=== PATIENT | female | born 1970 | race Caucasian/White ===

== ENCOUNTER → 2022-10-09 | Outpatient (CLI) | payer OTHER, SELFPAY ==
--- NOTE | 2022-10-09 07:29 | CT_ITS ---
CT RIGHT LOWER EXTREMITY WITH 3-D IMAGING CLINICAL INDICATION: POST TRAUMATIC OSTEOARTHRITIS TECHNIQUE: Axial CT images of the RIGHT lower extremity was performed without IV contrast material. Coronal and sagittal reformats were provided. RADIATION DOSAGE (If Supplied By Facility): CTDIvol = ( 18.94 ) mGy, DLP = ( 1189.09 ) mGycm COMPARISON: No relevant priors available FINDINGS: Bones: Imaging of the right hip joint was obtained. Mild degree of joint space narrowing. Minimal spurring is seen along the inferior medial aspect of the right femoral head as well as the superior lateral aspect of the right femoral head. Imaging of the right knee joint was obtained. There is a moderate degree of the joint space narrowing involving the lateral compartment of the knee joint with a degenerative spur formation at the medial and lateral femoral condyles as well as the lateral tibial plateau. There is a marked degree of joint space narrowing of the patellofemoral joint with spur formation. Posterior spur is also seen in the distal femur. There is also evidence of a 2.2 cm x 0.7 cm well-corticated bony fragment in the posterior joint space. Imaging of the ankle joint was obtained. No significant abnormality is seen. Soft Tissues: The deep soft tissue structures are unremarkable. The superficial soft tissues are unremarkable without evidence of edema, hematoma, or foreign body. CT/Extremity Lower without Contra IMPRESSION: Moderate degree of joint space narrowing involving the lateral compartment of the knee joint as well as the patellofemoral joint with degenerative spur formation. 2.2 cm x 0.7 cm well-corticated bony fragment in the posterior joint space. Electronically Signed: Omar Ramirez MD at 13:42 EDT ,
== END | disposition home or self-care (01) ==
PROVIDERS: PCP Family Medicine; Referring Provider Student in an Organized Health Care Education/Training Program; Visit Provider Student in an Organized Health Care Education/Training Program
DX: M17.31 Unilateral post-traumatic osteoarthritis, right knee (principal); M25.561 Pain in right knee
CPT/HCPCS: 73700

== ENCOUNTER 2022-10-30 05:26 | Day surgery (SDC) | payer OTHER, SELFPAY ==
--- NOTE | 2022-10-09 07:25 | EKG12_ITS ---
Test Reason : PRE OP Blood Pressure : / mmHG Vent. Rate : 076 BPM Atrial Rate : 076 BPM P-R Int : 176 ms QRS Dur : 092 ms QT Int : 396 ms P-R-T Axes : 029 017 040 degrees QTc Int : 445 ms Normal sinus rhythm Normal ECG Confirmed by FRANNY CANCINO, LOVE ([id number]), movie editor RENU RYDER ([id number]) on 10/10/2022 8:15:50 AM Referred By: Ar Neff Confirmed By:LOVE BLANTON MD
[2022-10-09 08:14] LABS: Absolute Lymphocyte Count 3.43 X10^3/uL (0.83-4.51); Absolute Neutrophil Count 4.1 X10^3/uL (2.0-7.7); Basophil# 0.07 X10^3/uL; Basophil% 0.8 % (0-1); Eosinophil# 0.27 X10^3/uL; Hematocrit 42.8 % (37-47); Hemoglobin 14.3 g/dL (12.0-15.0); Lymphocyte # 3.43 X10^3/ul (0.83-4.51); Lymphocyte % 38.3 % (19-41); Mean Corp Hgb Conc 33.4 g/dL (32-36); Mean Corpuscular Hgb 28.5 pg (27.0-32.0); Mean Corpuscular Volume 85.4 fL (81-99); Mean Platelet Vol. 9.6 fl (6.2-12.0); Monocyte# 1.03 X10^3/uL; Monocyte% 11.5 % (0-10); NRBC Flagged by Analyzer 0 % (0-5); Neutrophil # 4.11 X10^3/uL (2.7-7.7); Platelet Count 323 K/mm3 (150-450); RBC Distribution Width CV 12.4 % (11.6-14.6); RBC Distribution Width SD 37.9 fl (35.1-43.9); Red Blood Count 5.01 M/mm3 (4.2-5.4)
[2022-10-09 08:32] LABS: Anion Gap 5 (5-15); BUN 15 mg/dL (7-18); BUN/Creat Ratio 17.4 RATIO (10-20); Calcium,Total 9.1 mg/dL (8.5-10.1); Chloride 103 mmol/L (98-107); Creatinine, Serum 0.86 mg/dL (0.55-1.02); EST Glomerular Filtration Rate 74 mL/min (>60); Est Glom Filt Rate - Afr Amer 89 mL/min (>60); Glucose 97 mg/dL (74-106); Potassium 3.3 mmol/L (3.5-5.1); Sodium Level 137 mmol/L (136-145)
[2022-10-09 08:53] LABS: Magnesium 1.8 mg/dL (1.6-2.6)
--- NOTE | 2022-10-29 | KNEE_PTH ---
PATIENT: NIMA BILLS LOC: [facility] [place] U#:[id number] AGE/SX: 52/F ROOM: RE10/30/[address]: Dr. Ar Neff DO : 1970 BED: DIS: 10/30/2022 SPEC #: [id number] RECD: 10/30/22 12:03 STATUS: ARNULFO RODGER #: [id number] GINNY: 10/29/22 00:[address]: Ar Neff DEPT: SURGICAL PATHOLOGY RECD BY: Dany Andrade ENTERED: 10/30/22 12:03 SP TYPE: TOTAL KNEE OTHR DR: Dr. Aryan Norman MD Tissues: Knee, NOS Procedures: Decalcification bone/plaque Surgery Specimen Level IV HEADER OPERATION: ERAS, total knee replacement robotic arm assist PRE-OP DIAGNOSIS: Grade IV posttraumatic osteoarthritis TISSUE SUBMITTED: Right knee bone and tissue MICROSCOPIC DIAGNOSIS Bone and tissue of right knee, total knee resection: Severe degenerative joint disease. AM:eleuterio 11/03/2022 MICROSCOPIC DESCRIPTION Slides are reviewed. GROSS DESCRIPTION Received is one container designated bone and soft tissue right knee. The specimen consists of multiple fragments of mcintyre-yellow bone measuring in aggregate 11.0 x 10.0 x 3.0 cm. Also in the specimen container is a piece of cartilaginous tissue measuring 6.0 x 2.0 x 1.0 cm. A number of bony fragments contain articular surfaces consistent with tibial plateau and femoral condyle and displaying prominent osteophyte formation, eburnation and bone erosion. Assistant Branch Operations Manager sections are submitted in two cassettes as follows: 1 - soft tissue, 2 - bone after decalcification. / SJ:eleuterio 10/30/2022 TC:5 [facility]: [id number], [id number]
[2022-10-30] VITALS (11 sets, daily range): BP systolic 97–132; BP diastolic 58–93; PULSE 60–85; RESP 16–18; TEMP 36.1–36.8; O2SAT 95–100; BMI 38.8
[2022-10-30] MEDS: Magnesium 2 GM for ERAS IV (06:30)
[2022-10-30] MEDS: Lactated Ringers 1,000 ML 999 ML IV ×2 (06:30→10:37)
[2022-10-30] MEDS: Acetaminophen 500 MG Tablet 1000 MG PO (06:31)
[2022-10-30] MEDS: Gabapentin 600 MG Tablet PO (06:31)
[2022-10-30] MEDS: Celecoxib 200 MG Capsule 400 MG PO (06:31)
[2022-10-30 06:40] LABS: Bedside Glucose 83 mg/dL (74-106)
[2022-10-30] MEDS: dexAMETHasone 10 MG/ML Vial IV (07:50)
[2022-10-30] MEDS: TXA 1000mg in NS100 100ml (IVPB at Incision) 660 MG IV (07:50)
[2022-10-30] MEDS: JPS (Morphine 10mg/ml) OPERA.SITE (09:00)
[2022-10-30] MEDS: TXA 1000mg in NS100 100ml (IVPB at Closure) 660 MG IV (09:35)
--- NOTE | 2022-10-30 10:59 | DCINST_ITS ---
Discharge Instructions Follow Up Care Test Results: Test results from this visit will be discussed in further detail at your follow- up appointment, if applicable. Discharge Plan Admission Primary Reason for Your Visit: Right total knee replacement Attending Provider: Ar Neff Primary Care Provider: Aryan Norman Instructions Additional Instructions / Restrictions: Follow preprinted instructions from your surgeons office. Discharge Orders/Prescriptions Prescriptions: No Action meloxicam [Mobic] 15 mg Tablet 15 mg PO DAILY omeprazole 40 mg Capsule,Delayed Release(Dr/Ec) 40 mg PO DAILY acetaminophen [Tylenol Arthritis] 650 mg Tablet Extended Release 1,300 mg PO PRN PRN (Reason: Pain) ascorbic acid (vitamin C) [Super C] 500 mg Tablet 500 mg PO DAILY hydrochlorothiazide 25 mg Tablet 25 mg PO DAILY albuterol sulfate 90 mcg/actuation Hfa Aerosol Inhaler 1 inh INHALATION Q6H PRN (Reason: SOB) loratadine 10 mg Capsule 10 mg PO DAILY metoprolol succinate 50 mg Capsule,Sprinkle,Er 24hr 50 mg PO DAILY Referrals / Follow Up: Aryan Norman MD [Primary Care Provider] - Ar Neff DO [Med Staff - Active Staff] - Disposition Disposition (needs filled in before D/C Order can be placed): Home, Self Care
--- NOTE | 2022-10-30 10:59 | OP.PCM_ITS ---
Report of Operation Date of Procedure: 10/30/22 Description of Surgical Findings:: Preoperative diagnosis: Right knee primary osteoarthritis Postoperative diagnosis: Right knee primary osteoarthritis Procedure: Cemented right total knee arthroplasty Surgeon: Ar Neff DO Chinese Teacher: Desi Fields PA-C Anesthesia: Spinal with sedation, adductor canal block Anesthesiologist: Dr. Pugh Complications: None apparent Drains: None Estimated blood loss: 50 cc Urinary output: None recorded IV fluids: 1100 cc crystalloid Specimens: Total knee resections Surgical implants: Alex triathlon X3 asymmetric patella size a32 10 mm thickness, triathlon cruciate retaining femoral #5, primary tibial baseplate #5, triathlon X3 tibial bearing insert CS 9 mm Indications: This is a 52-year-old female seen in the outpatient setting diagnosed with right knee osteoarthritis with significant valgus deformity. She failed nonoperative management with intra-articular corticosteroid injections, activity modification, bracing, wwko-klj-chefimb analgesics. X-rays revealed grade 4 lateral compartment changes. She also had significant patellofemoral arthritis. I recommended a right total knee arthroplasty. The risk, benefits, alternatives to procedure reviewed with patient at length and she agreed to proceed. Risks included but were not limited to bleeding, infection, loss of life or limb, need for additional surgery, persistent pain, intraoperative or postoperative fracture, instability, loosening of components, wound complications, stiffness, neurovascular injury, DVT or PE. Patient expressed understanding these risks and wished to proceed with surgery. Informed consent was obtained in the outpatient setting. Description of procedure: Patient was identified in the preoperative holding area by name, medical record number, and date of . Informed consent was confirmed with the patient. The operative knee was marked with a surgical marker. At time of her procedure, patient brought to the operative suite and positioned supine a standard operating table. Anesthesia then administered a spinal anesthetic. She was then repositioned in the supine position with all bony prominences well-padded. We then placed a well-padded pneumatic tourniquet on the right upper thigh. The right upper extremity was brought across patient's chest throughout the procedure. We then prepped and draped the right lower extremity in a normal, sterile orthopedic fashion. We performed a timeout with all parties in attendance in agreement with the side, site, operation be performed. No concerns were voiced and would like to proceed with surgery. 3 g Daniel was administered prior to the incision by anesthesia staff as well as 1 g IV TXA. First exsanguinated the right lower extremity with a Esmarch bandage. Tourniquet was inflated to 280 mmHg remained up for 90 minutes. Esmarch was removed. I planned a standard midline approach to the right knee approximately 15 cm in length. Skin was sharply incised with a 10 blade scalpel developing full-thickness layers down to the retinaculum. Layers were developed identifying the VMO. I then planned a standard medial parapatellar arthrotomy performed in flexion. The anterior horn of the medial meniscus was released. Hoffa's fat pad was then released. I then everted the patella in extension and brought the knee into 90 degrees of flexion. The anterior horn of the lateral meniscus was then released. The ACL was split in its mid substance with a 10 blade. We then brought the knee back into extension. I measured the outer diameter of the patella to be approximately 46 mm, a patellar reamer was then selected. I measured the thickness of the patella to be 26 mm. I then reamed the patella to a depth of approximately 16 mm. A protective baseplate was then placed on the patella. I then placed pins in the metaphyseal distal femur medial to lateral for the Vijay arrays. In similar fashion, I made a 2 cm incision approximately a handsbreadth distal to the tibial tubercle along the medial aspect of the tibia, drilling 2 bicortical pins for the tibial array. The knee was brought into flexion. The patella was subluxed laterally but not everted. Medial lateral retractors were placed. We then utilized the [employer] software to confirm our planned surgical procedure and oriented with the patient's osseous anatomy. All checks with the [employer] system were confirmed. Patient had a significant fixed valgus deformity after performing stress examination utilizing the [employer] software. We elected to place the tibial baseplate in approximately 1 degree of valgus to allow for appropriate balancing. Sawblade was then brought in. I first started with the tibial cut, ensuring protection of the MCL and patellar tendon. A tibial wafer was then excised. I then proceeded to make the posterior femoral, anterior, anterior chamfer cuts with the same blade. Ligaments were protected with [employer] retractors. Sawblade was then exchanged to perform the distal femoral and posterior chamfer cuts. The robot was then removed from the surgical field. Remaining loose bone and meniscus was excised carefully. Posterior osteophytes were removed from the distal femur with a curved osteotome and rongeur. Trial components were then placed. Balance was excellent in both extension and 90 degrees flexion. No mid flexion instability was apparent. I then drilled for a size 32 patella. Patella was trialed. Tracking was excellent. We then marked for tibial baseplate. Distal femoral pegs were drilled. Tibial keel was punched. Trials were removed. Periarticular block was administered. The wound was copiously irrigated with normal saline solution. Simplex cement was then mixed on the back table. Components were then cemented in place with excess cement being removed. Cement was allowed to cure with the components in full extension utilizing a 9 mm trial polyethylene component. While the cement was curing, Betadine solution was irrigated into the wound and the wound edges. After cement had cured fully, trial polyethylene was removed. Tourniquet was deflated. Hemostasis was excellent. An additional 1 g TXA was administered IV. I selected a size 9 mm polyethylene which was placed and impacted per headliner installer recommendations. Final components appeared very well balanced with excellent range of motion. There is no significant remaining flexion contracture. The wound was copiously irrigated with normal saline solution. Capsule was closed watertight with #1 strata fix barbed suture. Deeper bursal layer was reapproximated with 0 Vicryl suture. Dermis was reapproximated buried inter rupted 2-0 Vicryl suture. Skin was finally reapproximated niecy. Patient tolerated the procedure well without apparent complication. She was safely awakened in the operative suite, transferred to his hospital bed and subsequently to PACU in stable condition. Need for skilled university administrative assistant: Desi Fields PA-C was critical to the outcome of the case. During the course of the procedure the physician university administrative assistant played a vital role. Her intimate knowledge of my steps in the procedure aided in safe and expedient completion of the procedure. The PA played a vital role in positioning particularly in obtaining the appropriate positioning. The PA was also vital in the retraction of soft tissues during the exposure and projecting vital structures. The PA was also vital and protecting soft tissues during times of bony cuts. She also played a vital role in closure with my direct supervision. The PA was also important during reduction and dislocation of the joint and trials intraoperatively. Post Operative Plan: Patient will mobilize with therapy after spinal anesthesia resolves. Anticipate discharge home today. Outpatient PT scheduled. Antibiotics: Ancef 3 g at time of incision, 1 g IV TXA prior to discharge DVT Prophylaxis: Aspirin 81 mg twice daily, JAGDISH hose, early mobilization Dacosta: None Dressing: Maintain silver dressing x5 days X-Rays: 2-week x-rays in the office. Follow-up: 2 weeks in my office for staple removal
[2022-10-30] MEDS: Lactated Ringers 1,000 ML 125 ML IV (11:07)
[2022-10-30] MEDS: Cefazolin 1 GM/50 ML BAG IV (12:41)
[2022-10-30] MEDS: oxyCODONE 5 MG Tablet PO (12:41)
== END 2022-10-30 14:33 | disposition home or self-care (01) ==
LOC: SDC 05:27 → AC 05:29
PROVIDERS: Anesthesiology; PCP Family Medicine; Referring Provider Student in an Organized Health Care Education/Training Program; Visit Provider Student in an Organized Health Care Education/Training Program
PROC: 0SRC0JZ Replacement of Right Knee Joint with Synthetic Substitute, Open Approach (ICD-10-PCS; CPT 27447; principal; 2022-10-30 07:00)
DX: M17.11 Unilateral primary osteoarthritis, right knee (principal); G47.30 Sleep apnea, unspecified; I10 Essential (primary) hypertension; K21.9 Gastro-esophageal reflux disease without esophagitis; Z79.899 Other long term (current) drug therapy; Z87.891 Personal history of nicotine dependence
CPT/HCPCS: 27447; S2900; 64447; 01402; 36415; 80048; 82962; 83735; 85025; 87081; 88305; 88311; 93005; 97162; C1776; J7120; J2405